=== PATIENT | female | born 1965 | race American Indian/Alaskan Native ===

== ENCOUNTER 2017-06-14 08:12 | Emergency (ER) | payer SELFPAY ==
[2017-06-14 08:20] VITALS: BP 158/89
--- NOTE | 2017-06-14 09:50 | Emergency Department Report ---
[facility] Chief Complaint: Eye Problems Stated Complaint: RIGHT EYE PAIN Time Seen by Provider: 06/14/17 08:39 Duration: 1 week Side: Right Severity: moderate Symptoms: Yes Eye Itching, Yes Eye Pain, Yes Mucous Drainage, No Eye Redness, No Purulent Drainage, No Blurred Vision, No Preceding URI, No H/O Allergic Rhinitis, No Contact Lens Use, No Trauma, No Fever, No Headache Other History: This is a 51 y.o. female that presents with right eye pain and swelling for 2 days. Patient reports waking up Sunday morning with a painful bump on right lower eyelid. She started puting warm compresses which caused some drainage that was clear. It is still mildly swollen and painful to touch. She used Stye ointment OTC for 1 day and it is making pain worse and caused itching. Denies visual changes, redness, fever, or rhinorrhea. ED Review of Systems ROS: Stated complaint: RIGHT EYE PAIN Other details as noted in HPI Constitutional: denies: chills, fever Eyes: eye pain (right lower eyelid, painful swollen bump), eye discharge (right eye). denies: vision change ENT: denies: ear pain, throat pain Respiratory: denies: cough, shortness of breath, wheezing Cardiovascular: denies: chest pain, palpitations Gastrointestinal: denies: abdominal pain, nausea, diarrhea Neurological: denies: headache, weakness, paresthesias ED Past Medical Hx - Past Medical History Previous Medical History?: No - Surgical History Past Surgical History?: No - Social History Smoking Status: Never Smoker Substance Use Type: None - Medications Home Medications: Home Medications Medication Instructions Recorded Confirmed Last Taken Type Erythromycin [Erythromycin Ophth 10 applic OP QID 7 Days #1 tube 06/14/17 Unknown Rx Oint] [facility] Exam - Exam General: Vital signs noted. No distress. Alert and acting appropriately. Eye Exam: Right Chemosis (palpable tender nodule, right lower eyelid), Both EOMI , Neither Injection, Neither Abnormal Pupil, Neither Eye Foreign Body, Neither Lid Foreign Body, Neither Mucous Discharge, Neither Purulent Discharge, Neither Fluorescein Uptake, Neither Fluorescein Uptake (slit lamp), Neither Cell/Flare ( slit lamp), Neither Corneal Edema, Neither Photophobia HEENT: No Nasal Congestion, No Pharyngeal Erythema Lungs: Yes Clear Lung Sounds, Yes Good Air Exchange, No Wheezes, No Stridor, No Cough, No Nasal Flaring, No Retractions, No Use of Accessory Muscles ED Course Vital Signs 06/14/17 08:16 Temperature 97.6 F Pulse Rate 63 Respiratory 18 Rate Blood Pressure 158/89 O2 Sat by Pulse 100 Oximetry ED Medical Decision Making - Medical Decision Making This is a 51 y.o. female that presents with right lower eyelid painful nodule for 2 days. Currently using OTC stye ointment and warm compresses with no improvement of symptoms. Patient is stable and was examined by me. Vitals normal. Physical assessment susceptible of hordeolum of right eye. Start erythromycin 0.5%, apply thin layer 4 times a day for 5 days. Continue using warm compresses for swelling. Discussed plan with patient and she agreed with plan. Discharged home in stable condition. Follow up with PCP in 24-72 hours. Critical care attestation.: If time is entered above; I have spent that time in minutes in the direct care of this critically ill patient, excluding procedure time. ED Disposition Clinical Impression: Hordeolum externum of right lower eyelid, Acute right eye pain Disposition: - TO HOME OR SELFCARE Is pt being admited?: No Does the pt Need Aspirin: No Condition: Stable Instructions: Stye (ED) Additional Instructions: Warm compresses as needed for swelling. Apply antibiotic ointment 4 times a day as prescribed for 7 days. Return to Primary Care Provider or ER if visual changes, swelling unresolved, and pain unresolved. Prescriptions: Erythromycin [Erythromycin Ophth Oint] 10 applic OP QID 7 Days #1 tube Referrals: [facility] [id number] [Provider Group] - 3-5 Days [facility], [facility] [Provider Group] - 3-5 Days Forms: Work/School Release Form(ED) Time of Disposition: 10:05 Print Language: CAMEROONIAN
== END 2017-06-14 10:11 | disposition home or self-care (01) ==
LOC: ED 08:12
DX: H00.012 Hordeolum externum right lower eyelid (principal)
CPT/HCPCS: 99282